=== PATIENT | male | born 1940 | race Caucasian/White ===

== ENCOUNTER 2017-01-11 13:00 | Inpatient (IN) | payer MEDICARE, BC ==
[~2017-01-11] VITALS: Ht 175.3 cm; Wt 67.3 kg
--- NOTE | ~2017-01-11 | DS ---
PATIENT'S NAME: SVETLANA CARRILLO [facility] AGE: 76 Y [address] ROOM: [place] [address] LOCATION: [facility] ADMIT DATE: 01/24/2017 Discharge Summary DISCHARGE DATE: 01/26/2017 FAMILY PHYSICIAN: Levar Peters MD ATTENDING PHYSICIAN: Yovany Blanc PRIMARY DIAGNOSIS: Degenerative joint disease of the left knee. SECONDARY DIAGNOSE: 1. Hypertension. 2. Hypothyroidism. 3. History of peripheral neuropathy. PROCEDURE PERFORMED: Left total knee arthroplasty. HISTORY: The patient is a 76-year-old male, who presents with advanced left knee degenerative joint disease and associated severely compromised activities of daily living. The patient has decided to proceed with total knee arthroplasty after having been thoroughly counseled regarding the risks, benefits, limitations and alternatives. Please refer to the outpatient clinic notes and admission history and physical for this patient. HOSPITAL COURSE: The patient underwent a left total knee arthroplasty on 01/24/2017 without complications. Spinal anesthesia plus adductor canal block plus periarticular local anesthesia was utilized. The patient received 24 hours of perioperative prophylactic antibiotics and remained hemodynamically stable, neurovascularly intact throughout the entire hospital course. The postoperative prophylactic deep venous thrombosis prophylaxis consisted of Xarelto, early mobilization and pneumatic compression devices. Daily physical therapy for gait training, transfer training range of motion and quadriceps isometric exercises were received. The patient progressed well in physical therapy. On the date of discharge, 01/26/2017, the incision at the knee was healing well and showed no signs of infection. DISPOSITION: Home. DISCHARGE ACTIVITY: The patient is to bear weight as tolerated with range of motion and quadriceps isometric exercises as instructed. The operative extremity is to be elevated at least 90% of the day. There is to be sterile 4x4 gauze dressings to the incision daily. Dr. Blanc is to be notified immediately if there is any increased pain, fevers, chills erythema or drainage. DISCHARGE MEDICATIONS: PATIENT'S NAME: SVETLANA CARRILLO [facility] AGE: 76 Y [address] ROOM: [place] [address] LOCATION: [facility] ADMIT DATE: 01/24/2017 Discharge Summary DISCHARGE DATE: 01/26/2017 FAMILY PHYSICIAN: Levar Peters MD ATTENDING PHYSICIAN: Yovany Blanc 1. Xarelto 10 mg 1 tab p.o. daily for 12 days for postoperative DVT prophylaxis. 2. [place] 5/325 mg 1 tab p.o. every 3 hours p.r.n. for pain. 3. Gabapentin 100 mg 1 tab p.o. every night for 7 days for pain. 4. Diazepam 5 mg 1/2 tab p.o. every 6 hours p.r.n. for muscle spasms. 5. He was then instructed to continue all his other preadmission medications as instructed by his internal medicine doctor. FOLLOWUP: Followup appointment is to be with Dr. Blanc's office on 01/31/2017 for his initial postoperative evaluation with x-rays of the left knee and staple removal at that time. THALIA HASSAN PA-C FOR MD KISHAN BARRIGA/denisel /[id number] d: 02/04/17 0200 t: 02/14/17 1311, DISCHARGE SUMMARY
--- NOTE | ~2017-01-11 | OR ---
PATIENT'S NAME: SVETLANA CARRILLO [facility] AGE: 76 Y [address] ROOM: [place] [address] LOCATION: [facility] ADMIT DATE: 01/24/2017 OR/Procedure Report DISCHARGE DATE: FAMILY PHYSICIAN: Levar Peters MD ATTENDING PHYSICIAN: JOEY ARAUJO SURGEON: Joey Araujo MD FUR BUYER: 1. KILO Rod. 2. Cristi Carrion CST/HANNAH. DATE OF PROCEDURE: 01/24/2017 PREOPERATIVE DIAGNOSIS: Degenerative joint disease, left knee. POSTOPERATIVE DIAGNOSIS: Degenerative joint disease, left knee. OPERATION: Left total knee arthroplasty with computer navigation. ANESTHESIA: Spinal anesthesia plus adductor canal block plus periarticular local anesthesia (ropivacaine with epinephrine and Toradol). ESTIMATED BLOOD LOSS: Less than 10 mL. DRAIN: None. SPECIMEN: None. COMPLICATIONS: None. IMPLANT SYSTEM: [employer]. 1. Size 6 left posterior stabilized femoral component. 2. Size 5 universal modular tibial baseplate. 3. A 9 mm posterior stabilized size 5 X3 tibial polyethylene insert. 4. A 38 mm oval X3 patellar component. INDICATIONS FOR SURGERY: Svetlana Carrillo is a 76-year-old male who presents with advanced left knee degenerative joint disease and associated severely compromised activities of daily living. The patient has decided to proceed with knee replacement after having been thoroughly counseled regarding the associated risks, benefits, and limitations. We have specifically reviewed the risks and implications of infection, deep venous thrombosis, pulmonary embolism, mortality, neurovascular complications, blood transfusion (and associated potential for disease transmission or transfusion reaction), stiffness, instability, mechanical deterioration of the components (due to wear and or loosening), and the potential need for revision. We have also emphasized the importance of active involvement and compliance with post- operative physical therapy as a means of optimizing range of motion and PATIENT'S NAME: SVETLANA CARRILLO [facility] AGE: 76 Y [address] ROOM: [place] [address] LOCATION: [facility] ADMIT DATE: 01/24/2017 OR/Procedure Report DISCHARGE DATE: FAMILY PHYSICIAN: Levar Peters MD ATTENDING PHYSICIAN: JOEY ARAUJO functional recovery. Informed consent has been granted. DESCRIPTION OF PROCEDURE: The patient was positioned supine after administration of anesthesia and prophylactic antibiotics. A well-padded pneumatic tourniquet was placed around the left proximal thigh, and the left lower extremity was prepped and draped with vigilant sterile technique. The patient's name as well as the intended operative side and procedure were confirmed with a verbal time-out involving myself, the circulating nurse, the scrub nurse, and the anesthesiologist. Examination under anesthesia demonstrated no active skin lesions or masses. There was severe quadriceps atrophy. There was a moderate effusion. There was no erythema. There was no abnormal warmth. Range of motion under anesthesia was from full extension to 130 degrees of flexion. There was no ligamentous insufficiency. The left lower extremity was elevated and exsanguinated with an Esmarch wrap, and the pneumatic tourniquet was inflated to 300mmHg. The knee was approached through a longitudinal midline incision. A medial parapatellar arthrotomy was performed and the patella was everted. Examination of the joint space demonstrated a moderate amount of benign-appearing translucent synovial fluid. There were no loose bodies. There was no synovitis. The anterior cruciate ligament was intact, but severely attenuated. Approximately 90% of its fibers were absent. The posterior cruciate ligament was intact. There was a small osteophyte at the intercondylar notch. There were large osteophytes at the medial femoral condyle and medial tibial plateau. There was full-thickness loss of articular cartilage throughout the medial femoral condyle and medial tibial plateau. There was erosion of approximately 5 mm of subchondral bone from the posteromedial aspect of the medial tibial plateau over a 2 cm diameter region. There was a large osteophyte at the medial femoral trochlea. There was a 2 cm diameter region of high-grade partial-thickness articular cartilage loss at the central aspect of the femoral trochlea. There was a small osteophyte at the lateral margin of the femoral trochlea. There were mild grade 3 degenerative changes throughout the majority of the patella. There were small osteophytes at the superior, lateral, and inferior margins of the patella. There was a moderate-sized osteophyte at the inferomedial margin of the patella. There was a small osteophyte at the lateral femoral condyle. There were mild grade 3 degenerative changes at the medial aspect of the lateral femoral condyle. There were mild grade 3 degenerative changes at the medial half of the lateral tibial plateau. There was mild inner perimeter tearing of the lateral meniscus. There was a small peripheral degenerative remnant of the medial meniscus. Remnants of the menisci and cruciate ligaments were excised. The [employer] PATIENT'S NAME: SVETLANA CARRILLO [facility] AGE: 76 Y [address] ROOM: [id number] [place], [place] [address] LOCATION: [facility] ADMIT DATE: 01/24/2017 OR/Procedure Report DISCHARGE DATE: FAMILY PHYSICIAN: Levar Peters MD ATTENDING PHYSICIAN: JOEY ARAUJO computer navigation femoral tracker was pinned in place at the distal aspect of the femoral trochlea. Absence of motion between the femur and the tracking device was confirmed manually and visually. Femoral osseous landmarks were obtained in order to calibrate the computer navigation system. Landmarks included the center of rotation of the ipsilateral hip, the center-point of the distal femur, the femoral AP axis, 57 points on the medial femoral condyle articular surface, and 57 points on the lateral femoral condyle articular surface. The [employer] Performance computer navigation system was subsequently utilized to position the distal femoral resection block such that the distal femoral resection was performed perfectly perpendicular to the femoral mechanical axis. The distal femoral resection was performed with a nuvoTV oscillating saw. The [employer] Performance computer navigation tibial tracker was pinned in place at the anterior aspect of the tibial plateau. Absence of motion between the tibia and the tracking device was confirmed manually and visually. Tibial osseous landmarks were obtained in order to calibrate the computer navigation system. Landmarks included the center-point of the tibial plateau, the AP tibial axis, 57 points on the medial tibial plateau articular surface, 57 points on the lateral tibial plateau articular surface, the medial malleolus, and the lateral malleolus. The [employer] Performance computer navigation system was subsequently utilized to position the proximal tibial resection block such that the proximal tibial resection was performed perfectly perpendicular to the tibial mechanical axis. The proximal tibial resection was performed with a [employer] Precision oscillating saw. Perpendicularity of the tibial resection with respect to the tibial shaft axis was reconfirmed by inserting a spacer- block attached to an extramedullary guide adrianna. External rotation of the anterior and posterior femoral resections was set parallel to the epicondylar axis and carefully adjusted in order to create a rectangular flexion gap. The box resection was performed with a reciprocating saw. Anterior and posterior chamfer resections were performed with the oscillating saw. Posterior condyle osteophytes were excised with an osteotome. All other osteophytes were excised with a rongeur. Resection of all remnants of the menisci was reconfirmed. Flexion and extension gaps were confirmed to be symmetric and well balanced with a spacer-block technique. The patella resection was performed with an oscillating saw such that the composite thickness of the reconstructed patella was equivalent to the thickness of the [employer] patella. Patella tracking was optimal, and there was no need for a lateral retinacular release. All trial components were removed and all prepared osseous surfaces were thoroughly irrigated with pulsatile saline lavage and dried prior to cementing all three components in a single stage using Merry[employer] Simplex cement containing PATIENT'S NAME: SVETLANA CARRILLO [facility] AGE: 76 Y [address] ROOM: [address] [address] LOCATION: [facility] ADMIT DATE: 01/24/2017 OR/Procedure Report DISCHARGE DATE: FAMILY PHYSICIAN: Levar Peters MD ATTENDING PHYSICIAN: JOEY ARAUJO pre-mixed tobramycin. All extruded excess cement was removed. The entire joint space was thoroughly inspected and thoroughly irrigated with bacteriostatic pulsatile saline lavage to assure that there was no residual debris of any sort. Final range of motion was from full extension (with no passive hyperextension) to 130 degrees of flexion. Patella tracking was reconfirmed to be optimal. There was excellent anteroposterior stability at 90 degrees of flexion. There was 0 mm of medial lift-off to valgus stress in full extension. There was 1 mm of lateral lift-off to varus stress in full extension. The arthrotomy was closed with multiple simple and [id number] interrupted #1 Vicryl. Subcutaneous tissues were thoroughly re-irrigated with bacteriostatic pulsatile saline lavage. Subcutaneous tissues were re- approximated with simple buried interrupted #0 Vicryl sutures. The skin was closed with simple buried interrupted 2-0 Vicryl sutures followed by surgical rosangela. The dressing consisted of Xeroform gauze, 4x4 gauze, ABD pads and two 6-inch Олег Wraps. There were no intra-operative complications. It should be noted that the physician's banking assistant played an active, integral role throughout this entire operation. By providing expert retraction, they greatly facilitated and expedited safe and effective exposure of the distal femur, proximal tibia and patella for preparation and implantation of the components. They were also actively involved in the patient's positioning, prepping and draping, as well as wound closure. MD OPAL BARRIGA/magdalena /[id number] d: 01/24/17 1507 t: 01/28/17 0752, OPERATIVE SUMMARY
[~2017-01-11 13:00] MED LIST: ARTHRITIS PAIN650 MG PO; COLACE100 MG PO; MIRALAX17 GM PO; MULTI VITAMIN1 EACH PO; NEURONTIN100 MG PO; NORCO 5-325 MG1 TAB PO; NP THYROID60 MG PO; TENORMIN25 MG PO; TESTOSTERONE2.5 GM TOP; TYLENOL EXTRA500 MG PO; ZOCOR80 MG PO; ZYLOPRIM300 MG PO
[2017-01-11] MEDS ORDERED: SENNA LAX8.6 MG PO (14:21)
[2017-01-11] MEDS ORDERED: NORCO 5-325 TA1 EACH PO (14:24)
--- NOTE | 2017-01-24 19:14 | NUR ---
Significant Event: TO ROOM AT 1350... HAS VOIDED 3 TIMES SINCE RETURNING TO FLOOR, CSM GOOD .LEGS STILL A LITTLE NUMB...HAD NORCO 1 TAB AT 1645....DR GARCIA AWARE OF BP ... Follow up:
--- NOTE | 2017-01-25 03:32 | NUR ---
Shift Summary: Patient can ambulate with one assist/walker. On room air all shift. Good pain control with one norco and valium 5mg. Tolerating regular diet well. Voiding without difficulty. Will go to an [facility] due to no family to care for him.
--- NOTE | 2017-01-25 09:50 | NUR ---
Introduced self/role to patient. He lives alone in [place]. His plan is to go to [facility] in [place] like he did following his shoulder surgery. He has a friend that can transport him. He believes he will be released tomorrow. I will contact [facility] to see what they need from me. He stated he will get his outpatient therapies from [facility] and [facility] will transport him there. 1020 Called [facility] #[phone] and spoke to Alysa. They are ready for him if he comes tomorrow. Faxed her information #[phone]. Placed a note on the chart that [facility] can take tomorrow if dismissed. Name is on patients marker board.
--- NOTE | 2017-01-25 17:24 | NUR ---
Significant Event: pt alert and oriented. up in the room with 1 assist to the bathroom. voids well. no bm today. last norco at 1702. vitals stable. ice to knee. Follow up:
--- NOTE | 2017-01-26 04:26 | NUR ---
Shift Summary: Patient to go to [facility] due to no family to help him. He can ambulate with standby assist/walker. Minimal pain using one norco at a time. Tolerating regular diet well. Voiding without difficuly. Wears hearing aids.
--- NOTE | 2017-01-26 09:45 | NUR ---
Started a courtesy packet for [facility]. 1315 Faxed orders to [facility] #[phone]
[2017-01-26] MEDS ORDERED: MIRALAX17 GM PO (11:20)
[2017-01-26] MEDS ORDERED: XARELTO10 MG PO (11:21)
[2017-01-26] MEDS ORDERED: VALIUM5 MG PO (11:22)
--- NOTE | 2017-01-26 12:18 | NUR ---
PT ALERT AND ORIENTED. TRANSFERS WITH 1 ASSIST TO THE BATHROOM AND IN THE ROOM AND HALLS. DEANGELO WELL. VOIDS WELL. NO BM UPON DISCHARGE. DRESSING TO LT KNEE INTACT WITH MEPILEX WITH SOME DARK DRIED DRAINAGE PRESENT UNDER DRESSING. NORCO FOR PAIN GIVEN THIS AM AT 0716 AND 1020. WILL ALSO OFFER UPON DISCHARGE. ICE TO KNEE AT ALL TIMES. PT COOPERATIVE AND QUESTIONS FREQ. WANTS TO MAKE SURE HE REMEMBERS WHAT HE IS SUPPOSE TO DO.
--- NOTE | 2017-01-26 13:39 | NUR ---
pt given discharge instructions and voice understanding. medications and dressing changes reviewed. pt had many questions and all were answered. escorted to the front door by transport staff. friend at pt's side.
== END 2017-01-26 13:45 | disposition disaster alternative care site (69) | DRG 470 ==
LOC: G3N 01-24 08:06
PROVIDERS: ADMIT Orthopaedic Surgery
PROC: 0SRD0J9 Replacement of Left Knee Joint with Synthetic Substitute, Cemented, Open Approach (ICD-10-PCS; principal; 2017-01-24)
PROC: XR2H021 Monitoring of Left Knee Joint using Intraoperative Knee Replacement Sensor, Open Approach, New Technology Group 1 (ICD-10-PCS; principal; 2017-01-24)
DX: M17.12 Unilateral primary osteoarthritis, left knee (principal); G62.9 Polyneuropathy, unspecified; E03.9 Hypothyroidism, unspecified; I10 Essential (primary) hypertension; M1A.9XX0 Chronic gout, unspecified, without tophus (tophi); R33.9 Retention of urine, unspecified
CPT/HCPCS: A9270; C1713; C1776; J0690; J1100; J1885; J2001; J2250; J2795; J7120

== ENCOUNTER → 2017-01-13 | Outpatient (CLI) | payer MEDICARE, BC ==
[~2017-01-13] MED LIST changes: +NORCO 5-325 TA1 EACH PO; +SENNA LAX8.6 MG PO; +VALIUM5 MG PO; +XARELTO10 MG PO
== END | disposition disaster alternative care site (69) ==
LOC: GNJRC 09:21
DX: Z01.812 Encounter for preprocedural laboratory examination (principal); M17.12 Unilateral primary osteoarthritis, left knee